=== PATIENT | female | born 2000 | race Caucasian/White ===

== ENCOUNTER 2020-04-05 08:46 | Emergency (ER) | payer OTHER ==
[~2020-04-05] VITALS: Ht 165.1 cm; Wt 72.6 kg
[2020-04-05 09:02] VITALS: Ht 165.1 cm; Wt 72.6 kg
[2020-04-05 11:26] VITALS: BP 126/78
== END 2020-04-05 11:26 | disposition home or self-care (01) ==
LOC: ED 08:46
DX: R07.89 Other chest pain (principal); R06.00 Dyspnea, unspecified
CPT/HCPCS: 36415; 85378; Q0092

== ENCOUNTER 2020-07-14 07:33 | Emergency (ER) | payer OTHER ==
[~2020-07-14] VITALS: Ht 170.2 cm; Wt 73.0 kg
[2020-07-14 07:37] VITALS: Ht 170.2 cm; Wt 73.0 kg
[2020-07-14 08:59] LABS: BASOPHIL % 0.4 % (0-2); PLATELET COUNT 235 x10^3mcL (130-400); RED CELL DISTRIBUTION WIDTH 13.1 % (11.5-14.5)
[2020-07-14 09:27] LABS: CALCIUM 9.7 mg/dL (8.5-10.1); CARBON DIOXIDE 26.1 mmol/L (21-32); CHLORIDE SERUM 107 mmol/L (98-107); CREATININE SERUM 0.7 mg/dL (0.6-1.0); GFR1 > 60 mL/min; GLUCOSE SERUM 115 mg/dL (74-106); POTASSIUM SERUM 3.6 mmol/L (3.5-5.1); SODIUM SERUM 140 mmol/L (136-145)
[2020-07-14 09:32] LABS: ALBUMIN 3.9 g/dL (3.4-5.0); ALKALINE PHOSPHATASE 73 U/L (46-116); ALT/SGPT 17 U/L (14-59); AST/SGOT 13 U/L (15-37); BILIRUBIN TOTAL 0.2 mg/dL (0.20-1.00); TOTAL PROTEIN, SERUM 7.5 g/dL (6.4-8.2)
[2020-07-14 10:31] LABS: AMPHETAMINE QUAL UR NONE DETECTED (See below)
[2020-07-14 12:14] VITALS: BP 108/72
== END 2020-07-14 12:14 | disposition home or self-care (01) ==
LOC: ED 07:33
PROVIDERS: Emergency Medicine
DX: R07.89 Other chest pain (principal)
CPT/HCPCS: 85378; Q0092